=== PATIENT | male | born 1995 | race Caucasian/White ===

== ENCOUNTER → 2020-01-22 | Outpatient (CLI) | payer MEDICAID, OTHER ==
--- NOTE | 2020-01-23 09:13 | MRI ---
EXAM DESCRIPTION: Brain w/o Contrast: MRI. CLINICAL HISTORY: WARE. 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 Mild autism. COMPARISON: None. TECHNIQUE: Multiplanar, high-field MRI unit, multiple diffusion sequences, multiple conventional sequences without contrast. FINDINGS: Hyperintense T2 and T2*signal in the posterior medial aspect of the right cerebellar hemisphere in the cortical region of the cerebellum and extending anteriorly abutting the posterior right fourth ventricle which is minimally dilated. Cerebellar folia are prominent. No mass effect. Associated with dark T2*signal indicating hemosiderin in the superior aspect. Encephalomalacia and decreased intensity signal on FLAIR imaging T1 image with a rim of hyperintensity scoliosis abutting the anterior margin of the encephalomalacia. Loss of volume in the right hemisphere. No diffusion restriction. No definite craniotomy is seen. Possible encephalomalacia in the superior right cerebellar tonsil. Normal signal in the remainder of the cerebellar hemispheres bilaterally Normal FLAIR and T2-weighted signal in the periventricular white matter and escalante/sub-cortical white matter junctions of the cerebral hemispheres. Normal signal in the. Bilateral basal ganglia. Normal signal in the brainstem. Concordance of the diffusion and non-diffusion sequences with no diffusion restriction. Cortical sulci, ventricles, and other CSF spaces, and the subdural spaces are unremarkable, except for the findings in the right cerebellar hemisphere described above. No effacement or displacement. No midline shift. No extra-axial hemorrhage. Normal flow signal void in the major vessels of the [place], and the venous sinuses. IACs are symmetric bilaterally. Normal signal in the bilateral mastoid air cells. No mass effect in the bilateral cerebellopontine angles. Pituitary gland occupies most of the sella. Base of the cerebellar tonsils is above the foramen magnum. Decompressed with thickening and possible air-fluid level in the right sphenoid air cell. Minimal mucoperiosteal thickening in the posterior ethmoid air cells. Frontal sinuses are hypoplastic bilaterally.. The bony calvarium is intact. IMPRESSION: 1. Region of encephalomalacia, gliosis, and old hemorrhage/hemosiderin in the posterior right cerebellar hemisphere cortex also extending into the adjacent cerebellar tonsil and anterior to the right margin of the fourth ventricle which is slightly dilated. This could represent site of prior tumor. Correlate for history of nonsurgical radiation treatment. No mass effect or acute hemorrhage. Remainder of the cerebellum is unremarkable. 2. Remainder of the intra-axial and extra-axial brain unremarkable. Normal noncontrast MRI diffusion of the brain and cerebellum with no evidence of significant ischemia or acute or subacute infarction. 3. Acute sinusitis right sphenoid air cell with adjacent sinus compartments showing chronic disease. IMPORTANT COMMUNICATION: The important findings communicated directly by Dr. Ibarra via phone call, with Dr. Lily Purcell, with clinical history provided by Dr. Purcell, at approximately 855 hours, on January 23, 2020. Electronically signed by: Derek Ibarra MD 01/23/2020 9:12 AM CDT
== END ==
LOC: MRI 12:40
PROVIDERS: ATTEND Family Medicine
DX: G93.89 Other specified disorders of brain (principal); J01.30 Acute sphenoidal sinusitis, unspecified; J32.9 Chronic sinusitis, unspecified